=== PATIENT | female | born 1935 | race Caucasian/White ===

== ENCOUNTER 2017-10-16 14:45 | Emergency (ER) | payer OTHER ==
[~2017-10-16] VITALS: Ht 175.3 cm; Wt 67.8 kg
[~2017-10-16 14:45] MED LIST: ASPIR 8181 M1 PO; CEPHALEXIN500 MG PO; CYANOCOBALAM1000 MCG PO; Calcium/Magnesium 50 PO; DIOVAN HCT 81 TABLET PO; Durezol 0.05% Ophtha RIGHT EYE; Ecotrin PO; FISH OIL 1,2001 EAC4 PO; Fish Oil PO; LIDODERM 5% P1 PATCH TD; NASONEX17 GM BOTH NARES; SODIUM CHLORIDE1 G1 PO; Tylenol Extra Streng PO; VYTORIN 10/21 TABLET PO; VYTORIN 10/81 TABLET PO; ZETIA10 MG PO
[2017-10-16 15:15] LABS: HEMATOCRIT 38.1 % (36.0-46.0); MCH 33.1 PG (29.0-34.0); MCHC 34.1 G/DL (30.0-36.0); MCV 96.9 FL (83-99); PLATELET COUNT 281 K/uL (156-360); RBC DIS.WIDTH-CV 11.9 % (11.8-14.6); RED BLOOD COUNT 3.93 M/uL (3.80-5.20)
[2017-10-16 15:28] LABS: CHLORIDE 100 mEq/L (99-109); POTASSIUM 4.3 mEq/L (3.7-5.4); SODIUM 130 mEq/L (136-147)
[2017-10-16 15:29] LABS: GLUCOSE 119 mg/dL (70-99)
[2017-10-16 15:33] LABS: CREATININE 0.9 mg/dL (0.6-1.3); GFR ESTIMATE (CALCULATED) > 59 mL/min/
[2017-10-16 15:34] LABS: UREA NITROGEN (BUN) 17 mg/dL (9-23)
[2017-10-16] MEDS ORDERED: ANUSOL HC,ANUCO25 MG PR (16:25)
[2017-10-16 16:40] VITALS: BP 159/88
[2017-10-19 12:06] LABS: STOOL OCCULT BLD 1ST SPECIMEN NEGATIVE
== END 2017-10-16 16:45 | disposition home or self-care (01) ==
LOC: EME 14:45
PROVIDERS: Physician Assistant
DX: K64.9 Unspecified hemorrhoids (principal); K92.1 Melena; I10 Essential (primary) hypertension; Z79.82 Long term (current) use of aspirin; Z87.891 Personal history of nicotine dependence
CPT/HCPCS: 80048; 82272; 85027; 86850; 86900; 86901; 99281; 99284

== ENCOUNTER 2017-10-20 19:33 | Emergency (ER) | payer OTHER, BC ==
[~2017-10-20] VITALS: Ht 175.3 cm; Wt 67.2 kg
[~2017-10-20 19:33] MED LIST changes: +ANUSOL HC,ANUCO25 MG PR
[2017-10-20 20:20] LABS: HEMATOCRIT 37.3 % (36.0-46.0); HEMOGLOBIN 12.8 G/DL (11.9-15.5); MCHC 34.3 G/DL (30.0-36.0); MCV 96.1 FL (83-99); PLATELET COUNT 284 K/uL (156-360); RBC DIS.WIDTH-CV 12.1 % (11.8-14.6); RBC DIS.WIDTH-SD 42.4 % (39-53); RED BLOOD COUNT 3.88 M/uL (3.80-5.20); WHITE BLOOD COUNT 5.9 K/uL (4.1-10.2)
[2017-10-20 20:37] LABS: ALBUMIN 4.3 g/dL (3.2-4.8); CHLORIDE 96 mEq/L (99-109); POTASSIUM 4.4 mEq/L (3.7-5.4); SODIUM 128 mEq/L (136-147)
[2017-10-20 20:39] LABS: GLUCOSE 88 mg/dL (70-99); TOTAL PROTEIN 7.7 g/dL (6.4-8.3)
[2017-10-20 20:41] LABS: TOTAL BILIRUBIN 0.7 mg/dL (0.0-1.0)
[2017-10-20 20:43] LABS: ALKALINE PHOSPHATASE 72 IU/L (3-129); GFR ESTIMATE (CALCULATED) 56 mL/min/
[2017-10-20 20:44] LABS: UREA NITROGEN (BUN) 17 mg/dL (9-23)
[2017-10-20 20:45] LABS: AST (GOT) 17 IU/L (2-34)
[2017-10-20 20:46] LABS: ALT (GPT) 13 IU/L (3-49)
[2017-10-21 01:34] LABS: APPEARANCE CLEAR ((CLEAR)); BILIRUBIN NEGATIVE; BLOOD NEGATIVE; COLOR COLORLESS ((YELLOW)); GLUCOSE (STRIP) NEGATIVE; KETONES NEGATIVE; LEUKOCYTES TRACE; NITRITE NEGATIVE; PROTEIN (STRIP) NEGATIVE; SPECIFIC GRAVITY 1.015 (1.000-1.030); UROBILINOGEN 0.2 MG/DL (0.2-1.0)
[2017-10-21 01:44] LABS: BACTERIA NONE SEEN /HPF; EPITHELIAL CELLS RARE /HPF; MUCUS NONE SEEN /LPF; RED BLOOD CELLS 0-5 /HPF (0-5); UCUL ADDED? NO; WHITE BLOOD CELLS 0-5 /HPF (0-5)
[2017-10-21 02:15] VITALS: BP 137/76
== END 2017-10-21 02:20 | disposition home or self-care (01) ==
LOC: EME 19:33
DX: E87.1 Hypo-osmolality and hyponatremia (principal); K80.20 Calculus of gallbladder without cholecystitis without obstruction; I10 Essential (primary) hypertension; E78.00 Pure hypercholesterolemia, unspecified; E78.5 Hyperlipidemia, unspecified; Z79.82 Long term (current) use of aspirin; Z87.891 Personal history of nicotine dependence; Z96.643 Presence of artificial hip joint, bilateral; Z88.5 Allergy status to narcotic agent; Z88.4 Allergy status to anesthetic agent; Z88.8 Allergy status to other drugs, medicaments and biological substances
CPT/HCPCS: 71046; 74177; 80053; 81003; 85027; 99281; 99285; J7030